=== PATIENT | male | born 1990 | race Caucasian/White ===

== ENCOUNTER 2023-04-28 14:07 | Outpatient (CLI) | payer OTHER, SELFPAY | END 2023-04-28 14:08 | disposition home or self-care (01) | PROVIDERS: Visit Provider Family Medicine | DX: Z00.00 Encounter for general adult medical examination without abnormal findings (principal); L40.9 Psoriasis, unspecified; Z13.6 Encounter for screening for cardiovascular disorders | CPT/HCPCS: 80048; 80061 ==